=== PATIENT | female | born 1980 | race American Indian/Alaskan Native ===

== ENCOUNTER 2017-03-15 08:24 | Emergency (ER) | payer MEDICAID ==
[2017-03-15 08:51] LABS: Hematocrit 40.7 % (30.3-42.9); Hemoglobin 13.7 gm/dl (10.1-14.3); Mean Corpuscular HGB Conc 34 % (30-34); Mean Corpuscular Hemoglobin 31 pg (28-32); Mean Corpuscular Volume 92 fl (79-97); Platelet Count 197 K/mm3 (140-440); Red Blood Count 4.41 M/mm3 (3.65-5.03); Red Cell Distribution Width 13.5 % (13.2-15.2); White Blood Count 5.9 K/mm3 (4.5-11.0)
[2017-03-15 09:08] LABS: Alanine Aminotransferase 8 units/L (7-56); Albumin/Globulin Ratio 1.2 %; Alkaline Phosphatase 41 units/L (35-129); Anion Gap 18 mmol/L; BUN/Creatinine Ratio 16.25; Blood Urea Nitrogen 13 mg/dL (7-17); Carbon Dioxide 24 mmol/L (22-30); Chloride 102.6 mmol/L (98-107); Glucose 91 mg/dL (65-100); Lipase 31 units/L (13-60); Potassium 4.2 mmol/L (3.6-5.0); Sodium 140 mmol/L (137-145); Total Protein 7.3 g/dL (6.3-8.2)
[2017-03-15 09:30] LABS: Bilirubin,Urine NEG (Negative); Blood,Urine NEG (Negative); Ketones,Urine NEG (Negative); Leukocyte Esterase,Urine TR (Negative); Mucus,Urine FEW /HPF; Nitrite,Urine NEG (Negative); Protein,Urine <15 mg/dL mg/dL (Negative); Urobilinogen,Urine < 2.0 mg/dL (<2.0)
[2017-03-15 09:41] LABS: Blastocytes % (Manual) 0 %; RBC Morphology Normal
[2017-03-15 09:42] LABS: Diff Status Complete
[2017-03-15] MEDS ORDERED: ZOFRAN PO ONE (10:21)
[2017-03-15] MEDS ORDERED: PEPCID PO ONE (10:21)
--- NOTE | 2017-03-15 10:24 | Emergency Department Report ---
ED Abdominal Pain HPI - General Chief Complaint: Abdominal Pain Stated Complaint: N/V/CRAMPING Time Seen by Provider: 03/15/17 10:06 Source: patient Mode of arrival: Ambulatory Limitations: No Limitations - History of Present Illness Initial Comments: 36-year-old female who woke up with cramping in the epigastric superior region and then vomited 1. Here with improvement in pain but still feeling somewhat nauseous. No fevers chills. She hasn't had any diarrhea. Her last menstrual cycle was one month ago. She was supposed to start her cycle 2 days ago. She had no vaginal bleeding or vaginal discharge. She does not know if she could be . MD Complaint: abdominal pain -: Sudden Location: epigastric, suprapubic Radiation: none Migration to: no migration Severity: moderate Severity scale (0 -10): 5 Quality: cramping Consistency: other (improving) Improves With: nothing Worsens With: nothing Associated Symptoms: nausea, vomiting. denies: diarrhea, fever, chills, dysuria - Related Data LMP (females 10-50): 1 month Previous Rx's Medication Instructions Recorded Last Taken Type HYDROcodone/APAP 5-325 [[place] 1 each PO Q6HR PRN #12 tablet 09/09/13 Unknown Rx 5-325 mg TAB] Acetaminophen/Codeine [Tylenol 1 tab PO Q6H PRN #15 tab 12/27/13 Unknown Rx /Codeine # 3 tab] Methocarbamol [Robaxin TAB] 750 mg PO Q8H PRN #21 tablet 12/27/13 Unknown Rx Naproxen Sodium (Nf) [Anaprox DS 550 mg PO BID PRN #14 tablet 12/27/13 Unknown Rx TAB] ALBUTEROL Inhaler [ProAir HFA 2 puff IH QID PRN #1 inh 01/18/14 Unknown Rx Inhaler] Prednisone [Prednisone 5 mg (6-Day 5 mg PO .TAPER #1 tab.ds.pk 01/18/14 Unknown Rx Pack, 21 Tabs)] Budesonide [Rhinocort Allergy] 2 sprays NS DAILY #1 spray.pump 05/22/16 Unknown Rx Fexofenadine/Pseudoephedrine 1 each PO DAILY #15 tab.er.24h 05/22/16 Unknown Rx [Stephanie-D 24 Hour Tablet] predniSONE [Deltasone] 20 mg PO QDAY #5 tab 05/22/16 Unknown Rx Ondansetron [Zofran Odt] 4 mg PO Q6H PRN #8 tab.rapdis 03/15/17 Unknown Rx Allergies Allergy/AdvReac Type Severity Reaction Status Date / Time No Known Allergies Allergy Verified 12/27/13 12:47 ED Review of Systems ROS: Stated complaint: N/V/CRAMPING Other details as noted in HPI Comment: All other systems reviewed and negative Constitutional: denies: chills, fever Eyes: denies: eye pain, eye discharge, vision change ENT: denies: ear pain, throat pain Respiratory: denies: cough, shortness of breath, wheezing Cardiovascular: denies: chest pain, palpitations Gastrointestinal: denies: abdominal pain, nausea, diarrhea Genitourinary: denies: urgency, dysuria, discharge Musculoskeletal: denies: back pain, joint swelling, arthralgia Skin: denies: rash, lesions Neurological: denies: headache, weakness, paresthesias Psychiatric: denies: anxiety, depression Hematological/Lymphatic: denies: easy bleeding, easy bruising ED Past Medical Hx - Past Medical History Previous Medical History?: Yes Hx Asthma: Yes Additional medical history: Polyps in nose - Surgical History Past Surgical History?: No - Family History Family history: no significant - Social History Smoking Status: Never Smoker Substance Use Type: Alcohol - Medications Home Medications: Home Medications Medication Instructions Recorded Confirmed Last Taken Type HYDROcodone/APAP 5-325 [[place] 1 each PO Q6HR PRN #12 tablet 09/09/13 Unknown Rx 5-325 mg TAB] Acetaminophen/Codeine [Tylenol 1 tab PO Q6H PRN #15 tab 12/27/13 Unknown Rx /Codeine # 3 tab] Methocarbamol [Robaxin TAB] 750 mg PO Q8H PRN #21 tablet 12/27/13 Unknown Rx Naproxen Sodium (Nf) [Anaprox DS 550 mg PO BID PRN #14 tablet 12/27/13 Unknown Rx TAB] ALBUTEROL Inhaler [ProAir HFA 2 puff IH QID PRN #1 inh 01/18/14 Unknown Rx Inhaler] Prednisone [Prednisone 5 mg (6-Day 5 mg PO .TAPER #1 tab.ds.pk 01/18/14 Unknown Rx Pack, 21 Tabs)] Budesonide [Rhinocort Allergy] 2 sprays NS DAILY #1 spray.pump 05/22/16 Unknown Rx Fexofenadine/Pseudoephedrine 1 each PO DAILY #15 tab.er.24h 05/22/16 Unknown Rx [Stephanie-D 24 Hour Tablet] predniSONE [Deltasone] 20 mg PO QDAY #5 tab 05/22/16 Unknown Rx Ondansetron [Zofran Odt] 4 mg PO Q6H PRN #8 tab.rapdis 03/15/17 Unknown Rx ED Physical Exam - General Limitations: No Limitations General appearance: alert, in no apparent distress - Head Head exam: Present: atraumatic, normocephalic - Eye Eye exam: Present: normal appearance. Absent: scleral icterus, conjunctival injection - ENT ENT exam: Present: mucous membranes moist - Neck Neck exam: Present: normal inspection. Absent: lymphadenopathy - Respiratory Respiratory exam: Present: normal lung sounds bilaterally. Absent: respiratory distress - Cardiovascular Cardiovascular Exam: Present: regular rate, normal rhythm. Absent: systolic murmur, diastolic murmur, rubs, gallop - GI/Abdominal GI/Abdominal exam: Present: soft, normal bowel sounds. Absent: distended, tenderness, guarding, rebound - Extremities Exam Extremities exam: Present: normal inspection. Absent: tenderness - Back Exam Back exam: Present: normal inspection. Absent: tenderness - Neurological Exam Neurological exam: Present: alert, oriented X3 - Psychiatric Psychiatric exam: Present: normal affect, normal mood - Skin Skin exam: Present: warm, dry, intact, normal color. Absent: rash ED Course Vital Signs 03/15/17 03/15/17 03/15/17 08:26 10:06 10:07 Temperature 98 F 98.5 F Pulse Rate 93 H 85 Respiratory 16 16 16 Rate Blood Pressure 141/95 Blood Pressure 132/86 [Left] O2 Sat by Pulse 98 100 100 Oximetry 03/15/17 11:57 Temperature Pulse Rate 70 Respiratory 16 Rate Blood Pressure Blood Pressure 126/74 [Left] O2 Sat by Pulse 98 Oximetry ED Medical Decision Making - Lab Data Result diagrams: 03/15/17 08:30 03/15/17 08:30 - Medical Decision Making Patient is a 36-year-old female who presents to emergency department with complaint of abdominal pain and cramping. She missed her last menstrual period. No vaginal bleeding or discharge. Clinical exam is unremarkable. Beta hCG shows a quantitative level of 554. Her ultrasound is negative. This is likely due to the fact that this is too early to identify IUP. She is no history of ectopic in the past. Plan to discharge patient with follow -up to OB. She needs repeat labs and ultrasound in 48 hours. Critical care attestation.: If time is entered above; I have spent that time in minutes in the direct care of this critically ill patient, excluding procedure time. ED Disposition Clinical Impression: Nausea and vomiting, First trimester Disposition: DC- TO HOME OR SELFCARE Is pt being admited?: No Condition: Stable Instructions: Abdominal Pain (ED), (ED), Morning Sickness (ED) Additional Instructions: You need follow-up with a production illustrator and 48 hours for repeat ultrasound and blood work. Please start taking a vitamin. Prescriptions: Ondansetron [Zofran Odt] 4 mg PO Q6H PRN #8 tab.rapdis PRN Reason: Nausea Referrals: PRIMARY CARE, [Primary Care Provider] - 3-5 Days DELIO LAINEZ MD [Staff Physician] - 03/17/17 (Follow-up in 48 hours)
[2017-03-15] MEDS ORDERED: ZOFRAN ODT ONE (10:31)
[2017-03-15 11:58] VITALS: BP 126/74
--- NOTE | 2017-03-15 13:32 | Ultrasound Report ---
Pelvic and transvaginal sonography: History: Abdominal cramping, and vomiting. Findings: Uterus measures 12.5 x 5.3 x 6.5 cm. Endometrial thickness 18.9 mm. No intrauterine gestation. Small fibroid anterior uterus measuring 1.2 cm in diameter. Right ovary measures 7.3 x 4.6 x 5.6 cm. Cystic mass in the right ovary measures 6.8 cm. Left ovary 3.7 x 2.1 x 3.3 cm. No mass. No fluid in the cul-de-sac. Impression: Thick endometrium. No intrauterine gestation. Large right ovarian cyst. Incidentally noted small fibroid in the anterior uterus.
== END 2017-03-15 13:59 | disposition home or self-care (01) ==
LOC: ED 08:24
DX: O21.9 Vomiting of pregnancy, unspecified (principal); O26.891 Other specified pregnancy related conditions, first trimester; R10.13 Epigastric pain; J45.909 Unspecified asthma, uncomplicated; Z3A.01 Less than 8 weeks gestation of pregnancy
CPT/HCPCS: 36415; 76801; 76817; 80053; 81001; 83690; 84702; 84703; 85007; 85025; 99284; Q0162

== ENCOUNTER 2019-09-15 12:19 | Emergency (ER) | payer MEDICAID ==
[2019-09-15] MEDS ORDERED: ALBUTEROL 2.5 MG/3 ML NEBU IH ONE (13:14)
[2019-09-15] MEDS ORDERED: IPRATROPIUM 0.02% NEBU 2.5 ML IH ONE (13:14)
[2019-09-15] MEDS ORDERED: predniSONE 20 MG TAB PO ONE (13:15)
--- NOTE | 2019-09-15 13:18 | Emergency Department Report ---
Chief Complaint: Dyspnea/Respdistress Stated Complaint: MEENA/WHEEZING/LIGHTHEADED - HPI History of Present Illness: Cough cold congestion withg wheeze, home neb with 2.5mg Alb no helping. denies fever. cough productive of yellow sputum - ROS Review of Systems: all systems reviewed and negative - Exam Vital Signs: Vital Signs 09/15/19 12:26 Temperature 97.7 F Pulse Rate 85 Respiratory 16 Rate Blood Pressure 146/94 O2 Sat by Pulse 98 Oximetry Physical Exam: AOx3 no acute distress. lungs: diffuse wheeze but able to speak full sentenses. heart tones normal abd soft non tender, no facial pain or anterior LAD MSE screening note: Focused history and physical exam performed. Due to findings the following was ordered: ED Medical Decision Making - Medical Decision Making lungs clear after neb treatment ED Disposition for MSE Clinical Impression: Acute asthma exacerbation Qualifiers: Asthma severity: moderate Asthma persistence: unspecified Qualified Code(s): J45.901 - Unspecified asthma with (acute) exacerbation Disposition: DC-01 TO HOME OR SELFCARE Is pt being admited?: No Condition: Stable Instructions: Asthma (ED) Time of Disposition: 15:28
[2019-09-15 15:50] VITALS: BP 133/73
== END 2019-09-15 16:00 | disposition home or self-care (01) ==
LOC: ED 12:19
DX: J45.901 Unspecified asthma with (acute) exacerbation (principal)
CPT/HCPCS: 94640; 99283; J7512; 94644

== ENCOUNTER 2021-12-20 10:45 | Emergency (ER) | payer MEDICAID ==
[2021-12-20 10:50] VITALS: BP 136/90
[2021-12-20 12:53] LABS: Basophils % (Auto) 0.7 % (0.0-1.8); Eosinophils # (Auto) 0.3 K/mm3 (0.0-0.4); Hematocrit 42.7 % (30.3-42.9); Hemoglobin 14.4 gm/dl (10.1-14.3); Lymphocytes # (Auto) 1.1 K/mm3 (1.2-5.4); Lymphocytes % (Auto) 20.5 % (13.4-35.0); Mean Corpuscular HGB Conc 34 % (30-34); Mean Corpuscular Volume 92 fl (79-97); Monocytes # (Auto) 0.5 K/mm3 (0.0-0.8); Monocytes % (Auto) 8.7 % (0.0-7.3); Platelet Count 220 K/mm3 (140-440); Red Blood Count 4.63 M/mm3 (3.65-5.03); Red Cell Distribution Width 13.6 % (13.2-15.2)
[2021-12-20 13:09] LABS: Alanine Aminotransferase 11 units/L (7-56); Albumin 4.4 g/dL (3.9-5); BUN/Creatinine Ratio 12; Blood Urea Nitrogen 11 mg/dL (7-17); Calcium 9.3 mg/dL (8.4-10.2); Hemolysis Index 8
--- NOTE | 2021-12-20 13:59 | Ultrasound Report ---
ULTRASOUND OBSTETRIC INDICATION / CLINICAL INFORMATION: pain in . TECHNIQUE: Transabdominal and Transvaginal. COMPARISON: None available. FINDINGS: GESTATIONAL SAC: Not visualized YOLK SAC: Not visualized EMBRYO/FETUS: No IUP visualized ADNEXA: 6.8 x 7.1 x 5.3 cm right ovarian corpus luteal cyst. Left ovary within normal limits FREE FLUID: None. ADDITIONAL FINDINGS: Uterus measures 12.7 x 4.5 x 7.1 cm. 2.3 cm uterine fibroid Endometrial stripe i s thickened measuring 16 mm. IMPRESSION: 1. No visualized IUP. 2. Thickened endometrial stripe may be secondary to recent miscarriage 3. Leiomyomatous uterus and 7 cm right ovarian corpus luteal cyst Signer Name: Karlos Rico MD Signed: 12/20/2021 1:55 PM Workstation Name: [id number]
--- NOTE | 2021-12-20 14:22 | Emergency Department Report ---
ED General Adult HPI - General Chief complaint: Urogenital-Female Stated complaint: NOT FEELING WELL Time Seen by Provider: 12/20/21 14:09 Source: patient Mode of arrival: Ambulatory Limitations: No Limitations - History of Present Illness Initial comments: 41-year-old -Stateless female patient presents for evaluation from the urgent care. Patient states yesterday she felt really fatigued and dizzy, however she felt normal upon waking today. She reports on she had a positive home test. LMP was 11/18/2021. She states a week ago she had some mild vaginal bleeding and has had intermittent lower abdominal cramping. She does follow with a FLOOR PLAN ADJUSTER. She denies any vaginal discharge, dysuria, hematuria, or dyspareunia. Patient states an EKG was performed at the urgent care which showed mild left atrial enlargement. She also states she had a UA that showed a UTI. Patient states the urgent care did prescribe her an antibiotic - Related Data Previous Rx's Medication Instructions Recorded Last Taken Type HYDROcodone/APAP 5-325 [[place] 1 each PO Q6HR PRN #12 tablet 09/09/13 Unknown Rx 5-325 mg TAB] Acetaminophen/Codeine [Tylenol 1 tab PO Q6H PRN #15 tab 12/27/13 Unknown Rx /Codeine # 3 tab] Naproxen Sodium (Nf) [Anaprox DS 550 mg PO BID PRN #14 tablet 12/27/13 Unknown Rx TAB] methOCARBAMOL [Robaxin TAB] 750 mg PO Q8H PRN #21 tablet 12/27/13 Unknown Rx Albuterol Mdi (or & Nicu Only) 2 puff IH QID PRN #1 inh 01/18/14 Unknown Rx [ProAir HFA Inhaler] Budesonide [Rhinocort Allergy] 2 sprays NS DAILY #1 spray.pump 05/22/16 Unknown Rx Fexofenadine/Pseudoephedrine 1 each PO DAILY #15 tab.er.24h 05/22/16 Unknown Rx [Stephanie-D 24 Hour Tablet] predniSONE [Deltasone] 20 mg PO QDAY #5 tab 05/22/16 Unknown Rx Ondansetron [Zofran Odt] 4 mg PO Q6H PRN #8 tab.rapdis 03/15/17 Unknown Rx Benzonatate [Tessalon Perles] 100 mg PO Q8HR #10 capsule 09/15/19 Unknown Rx predniSONE [Deltasone] 20 mg PO QDAY #5 tab 09/15/19 Unknown Rx ALBUTEROL NEB's [Proventil 0.083% 5 mg IH TID PRN #20 neb 10/24/19 Unknown Rx NEBS] Albuterol Mdi (or & Nicu Only) 2 puff IH QID PRN #1 inhalation 10/24/19 Unknown Rx [ProAir HFA Inhaler] Montelukast [Singulair] 10 mg PO QPM #30 tablet 10/24/19 Unknown Rx Prednisone [predniSONE 5 mg (6-Day 5 mg PO .TAPER #1 tab.ds.pk 10/24/19 Unknown Rx Pack, 21 Tabs)] Promethazine HCl [Promethazine TAB] 12.5 - 25 mg PO [id number] PRN #30 tab 12/20/21 Unknown Rx Allergies Allergy/AdvReac Type Severity Reaction Status Date / Time No Known Allergies Allergy Verified 12/27/13 12:47 ED Review of Systems ROS: Stated complaint: NOT FEELING WELL Other details as noted in HPI Constitutional: denies: chills, fever Respiratory: denies: cough, shortness of breath Cardiovascular: denies: chest pain Gastrointestinal: as per HPI, nausea. denies: vomiting Genitourinary: denies: urgency, dysuria, hematuria Musculoskeletal: denies: back pain Skin: denies: lesions Neurological: denies: headache ED Past Medical Hx - Past Medical History Hx Asthma: Yes (as a child) Additional medical history: Polyps in nose - Social History Smoking Status: Never Smoker Substance Use Type: Alcohol - Medications Home Medications: Home Medications Medication Instructions Recorded Confirmed Last Taken Type HYDROcodone/APAP 5-325 [[place] 1 each PO Q6HR PRN #12 tablet 09/09/13 Unknown Rx 5-325 mg TAB] Acetaminophen/Codeine [Tylenol 1 tab PO Q6H PRN #15 tab 12/27/13 Unknown Rx /Codeine # 3 tab] Naproxen Sodium (Nf) [Anaprox DS 550 mg PO BID PRN #14 tablet 12/27/13 Unknown Rx TAB] methOCARBAMOL [Robaxin TAB] 750 mg PO Q8H PRN #21 tablet 12/27/13 Unknown Rx Albuterol Mdi (or & Nicu Only) 2 puff IH QID PRN #1 inh 01/18/14 Unknown Rx [ProAir HFA Inhaler] Budesonide [Rhinocort Allergy] 2 sprays NS DAILY #1 spray.pump 05/22/16 Unknown Rx Fexofenadine/Pseudoephedrine 1 each PO DAILY #15 tab.er.24h 05/22/16 Unknown Rx [Stephanie-D 24 Hour Tablet] predniSONE [Deltasone] 20 mg PO QDAY #5 tab 05/22/16 Unknown Rx Ondansetron [Zofran Odt] 4 mg PO Q6H PRN #8 tab.rapdis 03/15/17 Unknown Rx Benzonatate [Tessalon Perles] 100 mg PO Q8HR #10 capsule 09/15/19 Unknown Rx predniSONE [Deltasone] 20 mg PO QDAY #5 tab 09/15/19 Unknown Rx ALBUTEROL NEB's [Proventil 0.083% 5 mg IH TID PRN #20 neb 10/24/19 Unknown Rx NEBS] Albuterol Mdi (or & Nicu Only) 2 puff IH QID PRN #1 inhalation 10/24/19 Unknown Rx [ProAir HFA Inhaler] Montelukast [Singulair] 10 mg PO QPM #30 tablet 10/24/19 Unknown Rx Prednisone [predniSONE 5 mg (6-Day 5 mg PO .TAPER #1 tab.ds.pk 10/24/19 Unknown Rx Pack, 21 Tabs)] Promethazine HCl [Promethazine TAB] 12.5 - 25 mg PO [id number] PRN #30 tab 12/20/21 Unknown Rx ED Physical Exam - General Limitations: No Limitations General appearance: alert, in no apparent distress - Head Head exam: Present: atraumatic, normocephalic - Eye Eye exam: Present: normal appearance. Absent: scleral icterus - ENT ENT exam: Present: normal exam - Neck Neck exam: Present: normal inspection - Respiratory Respiratory exam: Present: normal lung sounds bilaterally. Absent: respiratory distress - Cardiovascular Cardiovascular Exam: Present: regular rate, normal rhythm - GI/Abdominal GI/Abdominal exam: Present: soft. Absent: distended, tenderness, guarding, rebound, rigid - Back Exam Back exam: Absent: CVA tenderness (R), CVA tenderness (L) - Neurological Exam Neurological exam: Present: alert, oriented X3 - Psychiatric Psychiatric exam: Present: normal affect, normal mood - Skin Skin exam: Present: warm, dry, intact, normal color. Absent: rash ED Course Vital Signs 12/20/21 10:48 Temperature 98.0 F Pulse Rate 79 Respiratory 16 Rate Blood Pressure 136/90 O2 Sat by Pulse 100 Oximetry ED Medical Decision Making - Lab Data Result diagrams: 12/20/21 12:20 12/20/21 12:20 - Radiology Data Radiology results: report reviewed ULTRASOUND OBSTETRIC INDICATION / CLINICAL INFORMATION: pain in . TECHNIQUE: Transabdominal and Transvaginal. COMPARISON: None available. FINDINGS: GESTATIONAL SAC: Not visualized YOLK SAC: Not visualized EMBRYO/FETUS: No IUP visualized ADNEXA: 6.8 x 7.1 x 5.3 cm right ovarian corpus luteal cyst. Left ovary within normal limits FREE FLUID: None. ADDITIONAL FINDINGS: Uterus measures 12.7 x 4.5 x 7.1 cm. 2.3 cm uterine fibroid Endometrial stripe is thickened measuring 16 mm. IMPRESSION: 1. No visualized IUP. 2. Thickened endometrial stripe may be secondary to recent miscarriage 3. Leiomyomatous uterus and 7 cm right ovarian corpus luteal cyst - Medical Decision Making 41-year-old -Stateless female patient presents for evaluation from the urgent care. Patient states yesterday she felt really fatigued and dizzy, however she felt normal upon waking today. She reports on she had a positive home test. LMP was 11/18/2021. She states a week ago she had some mild vaginal bleeding and has had intermittent lower abdominal cramping. She does follow with a FLOOR PLAN ADJUSTER. She denies any vaginal discharge, dysuria, hematuria, or dyspareunia. Patient states an EKG was performed at the urgent care which showed mild left atrial enlargement. She also states she had a UA that showed a UTI. Patient states the urgent care did prescribe her an antib iotic Beta-hCG in the 900s. Labs are otherwise WNL. Patient has already been prescribed an antibiotic for UTI today. Advised patient to take as instructed by the urgent care. Ultrasound shows uterine fibroid without IUP. She is to return to the ED in 2 to 3 days for repeat beta hCG level. Discussed in detail signs and symptoms that should prompt immediate return to the ED with patient who verbalizes understanding. She is also some make a follow-up appointment with her FLOOR PLAN ADJUSTER for 1 week. Patient also advised to have her blood pressure rechecked with her FLOOR PLAN ADJUSTER in 1 week Critical care attestation.: If time is entered above; I have spent that time in minutes in the direct care of this critically ill patient, excluding procedure time. ED Disposition Clinical Impression: Early stage of , Uterine fibroid Disposition: HOME / SELF CARE / HOMELESS Is pt being admited?: No Condition: Stable Instructions: First Trimester of , [id number], Uterine Fibroids Additional Instructions: Return to the emergency room in 2 to 3 days for repeat beta hCG level Prescriptions: Promethazine HCl [Promethazine TAB] 12.5 - 25 mg PO [id number] PRN #30 tab PRN Reason: Nausea Forms: Work/School Release Form(ED)
== END 2021-12-20 16:00 | disposition home or self-care (01) ==
LOC: ED 10:45
DX: O34.11 Maternal care for benign tumor of corpus uteri, first trimester (principal); Z3A.01 Less than 8 weeks gestation of pregnancy
CPT/HCPCS: 36415; 76801; 76817; 80053; 84702; 85025; 86900; 86901; 99284

== ENCOUNTER 2021-12-23 11:09 | Emergency (ER) | payer MEDICAID ==
[2021-12-23 12:46] VITALS: BP 129/77
--- NOTE | 2021-12-23 12:50 | Emergency Department Report ---
ED Female HPI - General Chief complaint: Medical Clearance Stated complaint: F/U HCG LEVEL REPEAT Time Seen by Provider: 12/23/21 12:49 Source: patient Mode of arrival: Ambulatory Limitations: No Limitations - History of Present Illness Initial comments: Patient is a 41-year-old female that comes to the ER for beta quant recheck. See note from 48 hours ago. She denies any vaginal bleeding or discharge. Patient denies any pain. She denies any dysuria. Patient had an ultrasound at her prior visit as well as lab work. She does have an [facility] appointment for next week. Are you Now?: Yes - Related Data Sexually active: Yes Previous Rx's Medication Instructions Recorded Last Taken Type HYDROcodone/APAP 5-325 [[place] 1 each PO Q6HR PRN #12 tablet 09/09/13 Unknown Rx 5-325 mg TAB] Acetaminophen/Codeine [Tylenol 1 tab PO Q6H PRN #15 tab 12/27/13 Unknown Rx /Codeine # 3 tab] Naproxen Sodium (Nf) [Anaprox DS 550 mg PO BID PRN #14 tablet 12/27/13 Unknown Rx TAB] methOCARBAMOL [Robaxin TAB] 750 mg PO Q8H PRN #21 tablet 12/27/13 Unknown Rx Albuterol Mdi (or & Nicu Only) 2 puff IH QID PRN #1 inh 01/18/14 Unknown Rx [ProAir HFA Inhaler] Budesonide [Rhinocort Allergy] 2 sprays NS DAILY #1 spray.pump 05/22/16 Unknown Rx Fexofenadine/Pseudoephedrine 1 each PO DAILY #15 tab.er.24h 05/22/16 Unknown Rx [Stephanie-D 24 Hour Tablet] predniSONE [Deltasone] 20 mg PO QDAY #5 tab 05/22/16 Unknown Rx Ondansetron [Zofran Odt] 4 mg PO Q6H PRN #8 tab.rapdis 03/15/17 Unknown Rx Benzonatate [Tessalon Perles] 100 mg PO Q8HR #10 capsule 09/15/19 Unknown Rx predniSONE [Deltasone] 20 mg PO QDAY #5 tab 09/15/19 Unknown Rx ALBUTEROL NEB's [Proventil 0.083% 5 mg IH TID PRN #20 neb 10/24/19 Unknown Rx NEBS] Albuterol Mdi (or & Nicu Only) 2 puff IH QID PRN #1 inhalation 10/24/19 Unknown Rx [ProAir HFA Inhaler] Montelukast [Singulair] 10 mg PO QPM #30 tablet 10/24/19 Unknown Rx Prednisone [predniSONE 5 mg (6-Day 5 mg PO .TAPER #1 tab.ds.pk 10/24/19 Unknown Rx Pack, 21 Tabs)] Promethazine HCl [Promethazine TAB] 12.5 - 25 mg PO [id number] PRN #30 tab 12/20/21 Unknown Rx Allergies Allergy/AdvReac Type Severity Reaction Status Date / Time No Known Allergies Allergy Verified 12/27/13 12:47 ED Review of Systems ROS: Stated complaint: F/U HCG LEVEL REPEAT Other details as noted in HPI Comment: All other systems reviewed and negative ED Past Medical Hx - Past Medical History Previous Medical History?: Yes Hx Asthma: Yes (as a child) Additional medical history: Polyps in nose - Surgical History Past Surgical History?: No - Family History Family history: no significant - Social History Smoking Status: Never Smoker Substance Use Type: Alcohol - Medications Home Medications: Home Medications Medication Instructions Recorded Confirmed Last Taken Type HYDROcodone/APAP 5-325 [[place] 1 each PO Q6HR PRN #12 tablet 09/09/13 Unknown Rx 5-325 mg TAB] Acetaminophen/Codeine [Tylenol 1 tab PO Q6H PRN #15 tab 12/27/13 Unknown Rx /Codeine # 3 tab] Naproxen Sodium (Nf) [Anaprox DS 550 mg PO BID PRN #14 tablet 12/27/13 Unknown Rx TAB] methOCARBAMOL [Robaxin TAB] 750 mg PO Q8H PRN #21 tablet 12/27/13 Unknown Rx Albuterol Mdi (or & Nicu Only) 2 puff IH QID PRN #1 inh 01/18/14 Unknown Rx [ProAir HFA Inhaler] Budesonide [Rhinocort Allergy] 2 sprays NS DAILY #1 spray.pump 05/22/16 Unknown Rx Fexofenadine/Pseudoephedrine 1 each PO DAILY #15 tab.er.24h 05/22/16 Unknown Rx [Stephanie-D 24 Hour Tablet] predniSONE [Deltasone] 20 mg PO QDAY #5 tab 05/22/16 Unknown Rx Ondansetron [Zofran Odt] 4 mg PO Q6H PRN #8 tab.rapdis 03/15/17 Unknown Rx Benzonatate [Tessalon Perles] 100 mg PO Q8HR #10 capsule 09/15/19 Unknown Rx predniSONE [Deltasone] 20 mg PO QDAY #5 tab 09/15/19 Unknown Rx ALBUTEROL NEB's [Proventil 0.083% 5 mg IH TID PRN #20 neb 10/24/19 Unknown Rx NEBS] Albuterol Mdi (or & Nicu Only) 2 puff IH QID PRN #1 inhalation 10/24/19 Unknown Rx [ProAir HFA Inhaler] Montelukast [Singulair] 10 mg PO QPM #30 tablet 10/24/19 Unknown Rx Prednisone [predniSONE 5 mg (6-Day 5 mg PO .TAPER #1 tab.ds.pk 10/24/19 Unknown Rx Pack, 21 Tabs)] Promethazine HCl [Promethazine TAB] 12.5 - 25 mg PO [id number] PRN #30 tab 12/20/21 Unknown Rx ED Physical Exam - General Limitations: No Limitations ED Course Vital Signs 12/23/21 12:45 Pulse Rate 62 Respiratory 18 Rate Blood Pressure 129/77 O2 Sat by Pulse 99 Oximetry ED Medical Decision Making - Medical Decision Making Vital Signs 12/23/21 12:45 Pulse Rate 62 Respiratory 18 Rate Blood Pressure 129/77 O2 Sat by Pulse 99 Oximetry Lab Results 12/23/21 Range/Units 12:55 HCG, Quant 3181 H (0-4) mIU/mL See visit 48 hours ago. Beta quant is increasing. Patient has [facility] appointment next week. Patient discharged home with discharge plan of care including diet, activity, medications and follow-up. She understands she can take Tylenol and should be on pelvic rest. On discharge patient remains asymptomatic. She verbalizes understanding of the need to follow-up with her [employer]ER AND WIRER. - Differential Diagnosis Follow-up hCG Critical care attestation.: If time is entered above; I have spent that time in minutes in the direct care of this critically ill patient, excluding procedure time. ED Disposition Clinical Impression: Early stage of Disposition: 01 HOME / SELF CARE / HOMELESS Is pt being admited?: No Does the pt Need Aspirin: No Condition: Stable Additional Instructions: follow up with obgyn Referrals: KALYAN CHRISTENSEN MD [Staff Physician] - 3-5 Days Time of Disposition: 14:02
== END 2021-12-23 14:30 | disposition home or self-care (01) ==
LOC: ED 11:09
DX: Z34.91 Encounter for supervision of normal pregnancy, unspecified, first trimester (principal); J45.909 Unspecified asthma, uncomplicated; Z72.89 Other problems related to lifestyle; Z79.899 Other long term (current) drug therapy
CPT/HCPCS: 36415; 84702; 99283

== ENCOUNTER 2022-04-03 16:06 | Emergency (ER) | payer MEDICAID ==
[2022-04-03] MEDS ORDERED: ASPIRIN 325 MG TAB PO ONE (18:54)
[2022-04-03 19:48] LABS: Alanine Aminotransferase 22 units/L (7-56); Albumin 3.7 g/dL (3.9-5); BUN/Creatinine Ratio 13; Blood Urea Nitrogen 12 mg/dL (7-17); Calcium 9.4 mg/dL (8.4-10.2); Hemolysis Index 6
--- NOTE | 2022-04-03 19:49 | XRay Report ---
CHEST 1 VIEW 04/03/2022 7:32 PM INDICATION / CLINICAL INFORMATION: Chest Pain. COMPARISON: 10/24/2019. FINDINGS: SUPPORT DEVICES: None. HEART / MEDIASTINUM: No significant abnormality. LUNGS / PLEURA: No significant pulmonary or pleural abnormality. No pneumothorax. ADDITIONAL FINDINGS: No significant additional findings. IMPRESSION: No acute abnormality. Signer Name: Chris Melchor MD Signed: 04/03/2022 7:45 PM Workstation Name: [id number]
[2022-04-03 19:51] LABS: Basophils % (Auto) 0.2 % (0.0-1.8); Eosinophils # (Auto) 0.4 K/mm3 (0.0-0.4); Hematocrit 35.1 % (30.3-42.9); Hemoglobin 12.3 gm/dl (10.1-14.3); Lymphocytes # (Auto) 1.7 K/mm3 (1.2-5.4); Lymphocytes % (Auto) 15.2 % (13.4-35.0); Mean Corpuscular HGB Conc 35 % (30-34); Mean Corpuscular Volume 92 fl (79-97); Monocytes % (Auto) 8.8 % (0.0-7.3); Platelet Count 187 K/mm3 (140-440); Red Blood Count 3.83 M/mm3 (3.65-5.03); Red Cell Distribution Width 13.5 % (13.2-15.2)
[2022-04-03 20:01] LABS: INR 0.91 (0.87-1.13)
[2022-04-03 20:07] LABS: C-Reactive Protein 1.2 mg/dL (0.00-1.30)
[2022-04-03] MEDS ORDERED: ALUM-MAG HYDROXIDE-SIMETHICONE 200-200-20MG/5ML ORAL LIQD 30 ML PO ONE (20:39)
--- NOTE | 2022-04-03 20:40 | Emergency Department Report ---
ED General Adult HPI - General Chief complaint: Chest Pain Stated complaint: 20WKS /CHEST PAIN/VOMITNG/HEAR RACING PUI?: No Time Seen by Provider: 04/03/22 18:48 Source: patient Mode of arrival: Ambulatory Limitations: No Limitations - History of Present Illness Initial comments: Patient present to ED 19 weeks with chest pain and sob pain is intermittent on and off , while asleep, with sob , -: week(s), unknown Location: abdomen Severity scale (0 -10): 6 Quality: aching Consistency: intermittent Associated Symptoms: denies: denies other symptoms, confusion, chest pain, cough - Related Data Previous Rx's Medication Instructions Recorded Last Taken Type HYDROcodone/APAP 5-325 [[place] 1 each PO Q6HR PRN #12 tablet 09/09/13 Unknown Rx 5-325 mg TAB] Acetaminophen/Codeine [Tylenol 1 tab PO Q6H PRN #15 tab 12/27/13 Unknown Rx /Codeine # 3 tab] Naproxen Sodium (Nf) [Anaprox DS 550 mg PO BID PRN #14 tablet 12/27/13 Unknown Rx TAB] methOCARBAMOL [Robaxin TAB] 750 mg PO Q8H PRN #21 tablet 12/27/13 Unknown Rx Albuterol Mdi (or & Nicu Only) 2 puff IH QID PRN #1 inh 01/18/14 Unknown Rx [ProAir HFA Inhaler] Budesonide [Rhinocort Allergy] 2 sprays NS DAILY #1 spray.pump 05/22/16 Unknown Rx Fexofenadine/Pseudoephedrine 1 each PO DAILY #15 tab.er.24h 05/22/16 Unknown Rx [Stephanie-D 24 Hour Tablet] predniSONE [Deltasone] 20 mg PO QDAY #5 tab 05/22/16 Unknown Rx Ondansetron [Zofran Odt] 4 mg PO Q6H PRN #8 tab.rapdis 03/15/17 Unknown Rx Benzonatate [Tessalon Perles] 100 mg PO Q8HR #10 capsule 09/15/19 Unknown Rx predniSONE [Deltasone] 20 mg PO QDAY #5 tab 09/15/19 Unknown Rx ALBUTEROL NEB's [Proventil 0.083% 5 mg IH TID PRN #20 neb 10/24/19 Unknown Rx NEBS] Albuterol Mdi (or & Nicu Only) 2 puff IH QID PRN #1 inhalation 10/24/19 Unknown Rx [ProAir HFA Inhaler] Montelukast [Singulair] 10 mg PO QPM #30 tablet 10/24/19 Unknown Rx Prednisone [predniSONE 5 mg (6-Day 5 mg PO .TAPER #1 tab.ds.pk 10/24/19 Unknown Rx Pack, 21 Tabs)] Promethazine HCl [Promethazine TAB] 12.5 - 25 mg PO [id number] PRN #30 tab 12/20/21 Unknown Rx Allergies Allergy/AdvReac Type Severity Reaction Status Date / Time No Known Allergies Allergy Verified 12/27/13 12:47 ED Review of Systems ROS: Stated complaint: 19WKS /CHEST PAIN/VOMITNG/HEAR RACING Other details as noted in HPI Constitutional: denies: chills, fever Eyes: denies: eye pain, eye discharge, vision change ENT: denies: ear pain, throat pain Respiratory: denies: cough, shortness of breath, wheezing Cardiovascular: denies: chest pain, palpitations Endocrine: no symptoms reported Gastrointestinal: denies: abdominal pain, nausea, diarrhea Genitourinary: denies: urgency, dysuria, discharge Musculoskeletal: denies: back pain, joint swelling, arthralgia Skin: denies: rash, lesions Neurological: denies: headache, weakness, paresthesias Psychiatric: denies: anxiety, depression Hematological/Lymphatic: denies: easy bleeding, easy bruising ED Past Medical Hx - Past Medical History Previous Medical History?: No Hx Hypertension: No Hx Asthma: Yes (as a child) Additional medical history: Polyps in nose - Social History Smoking Status: Never Smoker Substance Use Type: Alcohol - Medications Home Medications: Home Medications Medication Instructions Recorded Confirmed Last Taken Type HYDROcodone/APAP 5-325 [[place] 1 each PO Q6HR PRN #12 tablet 09/09/13 Unknown Rx 5-325 mg TAB] Acetaminophen/Codeine [Tylenol 1 tab PO Q6H PRN #15 tab 12/27/13 Unknown Rx /Codeine # 3 tab] Naproxen Sodium (Nf) [Anaprox DS 550 mg PO BID PRN #14 tablet 12/27/13 Unknown Rx TAB] methOCARBAMOL [Robaxin TAB] 750 mg PO Q8H PRN #21 tablet 12/27/13 Unknown Rx Albuterol Mdi (or & Nicu Only) 2 puff IH QID PRN #1 inh 01/18/14 Unknown Rx [ProAir HFA Inhaler] Budesonide [Rhinocort Allergy] 2 sprays NS DAILY #1 spray.pump 05/22/16 Unknown Rx Fexofenadine/Pseudoephedrine 1 each PO DAILY #15 tab.er.24h 05/22/16 Unknown Rx [Stephanie-D 24 Hour Tablet] predniSONE [Deltasone] 20 mg PO QDAY #5 tab 05/22/16 Unknown Rx Ondansetron [Zofran Odt] 4 mg PO Q6H PRN #8 tab.rapdis 03/15/17 Unknown Rx Benzonatate [Tessalon Perles] 100 mg PO Q8HR #10 capsule 09/15/19 Unknown Rx predniSONE [Deltasone] 20 mg PO QDAY #5 tab 09/15/19 Unknown Rx ALBUTEROL NEB's [Proventil 0.083% 5 mg IH TID PRN #20 neb 10/24/19 Unknown Rx NEBS] Albuterol Mdi (or & Nicu Only) 2 puff IH QID PRN #1 inhalation 10/24/19 Unknown Rx [ProAir HFA Inhaler] Montelukast [Singulair] 10 mg PO QPM #30 tablet 10/24/19 Unknown Rx Prednisone [predniSONE 5 mg (6-Day 5 mg PO .TAPER #1 tab.ds.pk 10/24/19 Unknown Rx Pack, 21 Tabs)] Promethazine HCl [Promethazine TAB] 12.5 - 25 mg PO Q8HGCIB PRN #30 tab 12/20/21 Unknown Rx ED Physical Exam - General Limitations: No Limitations General appearance: alert, in no apparent distress - Head Head exam: Present: atraumatic, normocephalic - Eye Eye exam: Present: normal appearance - ENT ENT exam: Present: mucous membranes moist - Neck Neck exam: Present: normal inspection - Respiratory Respiratory exam: Present: normal lung sounds bilaterally. Absent: respiratory distress - Cardiovascular Cardiovascular Exam: Present: regular rate, normal rhythm. Absent: systolic murmur, diastolic murmur, rubs, gallop - GI/Abdominal GI/Abdominal exam: Present: soft, normal bowel sounds - Extremities Exam Extremities exam: Present: normal inspection - Back Exam Back exam: Present: normal inspection - Neurological Exam Neurological exam: Present: alert, oriented X3 - Psychiatric Psychiatric exam: Present: normal affect, normal mood - Skin Skin exam: Present: warm, dry, intact, normal color. Absent: rash ED Course Vital Signs 04/03/22 18:45 Temperature 98.6 F Pulse Rate 84 ED Medical Decision Making - Lab Data Result diagrams: 04/03/22 19:10 04/03/22 19:10 - EKG Data -: EKG Interpreted by Ia EKG shows normal: sinus rhythm Rate: normal - EKG Data Interpretation: no acute changes - Radiology Data Radiology results: report reviewed, image reviewed - Medical Decision Making work up negative vss, pain free , trop negative eg normal Critical care attestation.: If time is entered above; I have spent that time in minutes in the direct care of this critically ill patient, excluding procedure time. ED Disposition Clinical Impression: Chest pain Disposition: HOME / SELF CARE / HOMELESS Is pt being admited?: No Does the pt Need Aspirin: No Condition: Stable Instructions: Nonspecific Chest Pain, Adult
[2022-04-03 21:36] VITALS: BP 113/66
--- NOTE | 2022-04-04 09:16 | Electrocardiograph Report ---
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
== END 2022-04-03 21:45 | disposition left against medical advice (07) ==
LOC: ED 16:06
DX: O26.892 Other specified pregnancy related conditions, second trimester (principal); R07.9 Chest pain, unspecified; J45.909 Unspecified asthma, uncomplicated; Z3A.19 19 weeks gestation of pregnancy
CPT/HCPCS: 36415; 71045; 80053; 82550; 83690; 83880; 84484; 85025; 85610; 86140; 93005; 99283